=== PATIENT | female | born 1990 | race Caucasian/White ===

== ENCOUNTER 2018-05-29 01:15 | Emergency (ER) | payer SELFPAY ==
[~2018-05-29] VITALS: Ht 152.4 cm; Wt 75.0 kg
[2018-05-29 01:21] VITALS: BP 120/69; TEMP 99.1
[2018-05-29] MEDS ORDERED: SYNTHROID0.075 MG/T PO (01:23)
[2018-05-29] MEDS ORDERED: NEXPLANON68 MG (01:23)
[2018-05-29] MEDS ORDERED: BACTRIM DS 8001 TAB PO (03:24)
[2018-05-29] MEDS ORDERED: NORCO 325 MG-51 TAB PO (03:24)
[2018-05-29 03:58] VITALS: PULSE 107
== END 2018-05-29 03:59 | disposition home or self-care (01) ==
LOC: COL.ER 01:15
DX: L02.415 Cutaneous abscess of right lower limb (principal); E03.9 Hypothyroidism, unspecified
CPT/HCPCS: J1170; J2405

== ENCOUNTER 2018-06-28 04:08 | Emergency (ER) | payer OTHER ==
[~2018-06-28] VITALS: Ht 152.4 cm; Wt 73.6 kg
[~2018-06-28 04:08] MED LIST: BACTRIM DS 8001 TAB PO; NEXPLANON68 MG; NORCO 325 MG-51 TAB PO; SYNTHROID0.075 MG/T PO
[2018-06-28 04:13] VITALS: TEMP 97.5
[2018-06-28 04:29] LABS: COLLECTION METHOD CLEAN CATCH
[2018-06-28 04:34] LABS: MUCOUS Present /lpf; PH 5 (5-8); SQUAMOUS EPITHELIAL 0-2 /hpf; URINE APPEARANCE Clear; URINE BACTERIA Rare /hpf; URINE BILIRUBIN Negative (NEGATIVE); URINE BLOOD 1+ (NEGATIVE); URINE COLOR Yellow; URINE GLUCOSE Negative (NEGATIVE); URINE KETONE Negative (NEGATIVE); URINE LEUKOCYTE ESTERASE Negative (NEGATIVE); URINE NITRATE Negative (NEGATIVE); URINE PROTEIN(semi-quant) Negative (NEGATIVE); URINE UROBILINOGEN Negative (NEGATIVE)
[2018-06-28 04:38] LABS: BASO # 0.1 (0.0-0.2); BASO % 0.5 % (0.0-2.0); EOS # 0.1 (0.0-0.7); EOS % 1.5 % (0-4.0); GRAN % 52.2 % (42.2-75.2); HEMATOCRIT 39.3 % (37.0-47.0); LYMPH # 3.8 (1.2-3.4); LYMPH % 39.5 % (20.0-51.0); MEAN CELL VOLUME 90 fl (80.0-100.0); MEAN CORPUSCULAR HEMOGLOBIN 30 pg (27.0-31.0); MEAN CORPUSCULAR HGB CONC 33 g/dl (33.0-37.0); MEAN PLATELET VOLUME 9.4 fl (7.4-10.4); MONO # 0.6 (0.1-0.6); MONO % 6.2 % (1.7-9.3); PLATELET COUNT 373 K/mm3 (130-400); RED BLOOD COUNT 4.39 M/mm3 (4.10-5.30); REDCELL DISTRIBUTION WIDTH-CV 13.7 % (11.5-14.5)
[2018-06-28 04:56] LABS: ALBUMIN 4.2 gm/dL (3.5-5.0); C-REACTIVE PROTEIN 0.7 mg/dL (0.0-0.9); CALCIUM 9.1 mg/dL (8.4-10.2); CREATININE, serum 0.83 mg/dL (0.52-1.25); POTASSIUM 3.7 mmol/L (3.4-5.0); TOTAL PROTEIN 7.8 gm/dL (6.4-8.2)
[2018-06-28] MEDS ORDERED: CARAFATE 1GM1 G PO (06:03)
[2018-06-28] MEDS ORDERED: PROTONIX 40MG T40 MG PO (06:04)
[2018-06-28] MEDS ORDERED: ZOFRAN ODT4 MG PO (06:04)
[2018-06-28 06:12] VITALS: BP 122/77; PULSE 72
== END 2018-06-28 06:13 | disposition home or self-care (01) ==
LOC: COL.ER 04:08
PROVIDERS: Emergency Medicine
DX: R10.13 Epigastric pain (principal); E03.9 Hypothyroidism, unspecified